=== PATIENT | female | born 1960 | race Caucasian/White ===

== ENCOUNTER 2016-11-25 12:50 | Emergency (ER) | payer OTHER ==
[2016-11-25] MEDS ORDERED: ONDANSETRON ODT 4 MG TAB ONE (13:56)
[2016-11-25] MEDS ORDERED: DILAUDID 1 MG/ML AMP ONE (13:56)
== END 2016-11-25 16:30 | disposition home or self-care (01) ==
LOC: ER 12:50
DX: M54.42 Lumbago with sciatica, left side (principal); M51.36 Other intervertebral disc degeneration, lumbar region; M51.16 Intervertebral disc disorders with radiculopathy, lumbar region; G89.11 Acute pain due to trauma; Z87.891 Personal history of nicotine dependence
CPT/HCPCS: 72148; 96372